=== PATIENT | male | born 1950 ===

== ENCOUNTER → 2018-06-24 | Outpatient (CLI) | payer MEDICARE, OTHER ==
[~2018-06-24] MED LIST: ATOR10TA24 PO; CALC-515 PO; FLAX100041 PO; FLU180SY11 IM; GEMF600T89 PO; LISI-362 PO; MULT-865 PO; PANT40TA65 PO; PNEI IJ; PNEU0.5D3 IM; PSYL0.5241 PO; [UNRECOGNIZED DRUG - REMARK]
[2018-06-24 11:29] LABS: PLATELET COUNT, AUTOMATED 365 K/uL (150-450)
--- NOTE | 2018-06-24 13:31 | RADIOLOGY IMAGING REPORT ---
[place] [facility] [place] NAME: Kolton Venegas : 1950 MR: [id number] V: [id number] EXAM DATE: ORDERING PHYSICIAN: HAYLEY ALEMAN TECHNOLOGIST: Location: [facility] [place] Patient: Kolton Venegas : 1950 Visit/Account:[id number] Date of Sevice: 06/24/2018 Exam type: CERVICAL SPINE 2 OR 3 VIEW History: headache, neck pain Comparison: None. Findings: Three views of the cervical spine were submitted There is straightening of normal cervical lordosis which can be seen with muscle spasm. There is mod erate disc space narrowing and anterior osteophytes and uncovertebral spurring at C5-6 and C6-7 to a lesser extent C7-T1. There is no evidence of prevertebral soft tissue swelling IMPRESSION: 1. Moderate spondylotic changes at C5-6 and C6-7 and to a lesser extent at C7-T1 Straightening of the normal cervical doses which can be seen with muscle spasm Report Dictated By: Evie Ibarra MD at 06/24/2018 1:25 PM Report E-Signed By: Evie Ibarra MD at 06/24/2018 1:26 PM WSN:[id number]
== END ==
LOC: LAB 10:25
PROVIDERS: ATTEND Internal Medicine
DX: E78.2 Mixed hyperlipidemia (principal); K21.9 Gastro-esophageal reflux disease without esophagitis; R51 Headache; R73.09 Other abnormal glucose; N18.9 Chronic kidney disease, unspecified; I10 Essential (primary) hypertension; M54.2 Cervicalgia
CPT/HCPCS: 36415; 72040; 81001; 82040; 82247; 82310; 82374; 82435; 82465; 82565; 82947; 83036; 83718; 83735; 84075; 84132; 84155; 84295; 84450; 84460; 84478; 84520; 84550; 85025

== ENCOUNTER → 2018-09-09 | Outpatient (CLI) | payer MEDICARE, OTHER ==
[~2018-09-09] MED LIST changes: +ROSU5TAB8 PO; +UBID100C48 PO
== END ==
LOC: LAB 09:55
PROVIDERS: ATTEND Internal Medicine
DX: E78.5 Hyperlipidemia, unspecified (principal); I10 Essential (primary) hypertension; R73.09 Other abnormal glucose
CPT/HCPCS: 36415; 82040; 82247; 82310; 82374; 82435; 82465; 82550; 82565; 82947; 83718; 84075; 84132; 84155; 84295; 84450; 84460; 84478; 84520